=== PATIENT | female | born 1990 | race Two or more races ===

== ENCOUNTER 2019-12-07 13:52 | Emergency (ER) | payer MEDICAID ==
[~2019-12-07] VITALS: Ht 162.6 cm; Wt 50.0 kg
[2019-12-07 14:49] LABS: BASOPHILS % 0.6 % (0.0-2.0); EOSINOPHILS % 1.1 % (0.0-5.0); HEMATOCRIT. 36.6 % (36.0-48.0); HEMOGLOBIN. 12.3 g/dL (12.0-16.0); LYMPHOCYTES % 36.1 % (20.0-50.0); MEAN CORPUSCULAR HEMOGLOBIN 31.1 pg (28.0-32.0); MEAN CORPUSCULAR VOLUME 92.7 fL (81.0-99.0); MEAN PLATELET VOLUME 12.2 fl (7.4-10.4); MONOCYTES % 5.4 % (2.0-8.0); NEUTROPHILS % 56.8 % (40.0-76.0); PLATELET 122 x1000/uL (130-400); RED BLOOD CELL COUNT 3.95 mill/uL (4.2-5.4); RED CELL DISTRIBUTION WIDTH 13.2 % (11.6-14.6)
[2019-12-07 14:58] LABS: CHLORIDE 109 mEq/L (98-107)
[2019-12-07 15:22] LABS: HCG SCREEN NEGATIVE
[2019-12-07 16:30] VITALS: BP 126/80
== END 2019-12-07 17:37 | disposition left against medical advice (07) ==
LOC: ER 13:52
DX: R55 Syncope and collapse (principal); N94.6 Dysmenorrhea, unspecified
CPT/HCPCS: 36415; 71045; 80053; 83880; 84484; 84703; 85025; 85379; 93005; 99285